=== PATIENT | male | born 1965 | race Caucasian/White ===

== ENCOUNTER 2016-08-27 07:22 | Day surgery (SDC) | payer BC ==
--- NOTE | ~2016-08-27 | EGD ---
EGD REPORT [facility] [address] [address] NAME: ZAIRE DICKINSON : [birth year] STATUS : REG [facility]#: [id number] AGE: 51 ADM/REG DATE : 08/27/16 MR#: [id number] REPORT SERV DATE: 08/27/16 DICTATED BY: SHAN LENZ DATE: 08/27/16 REPORT STATUS : Draft [facility]ANSCRIBED BY: [facility] DATE: 08/27/16 [facility] Patient Name: Zaire Dickinson Date of : 1965 Attending MD: SHAN LENZ MD Procedure Date No Time: 08/27/2016 Procedure: Colonoscopy Indications: High risk colon cancer surveillance: Personal history of colonic polyps last exam 3 years ago done elsewhere. Patient Profile: Informed consent was obtained from the patient by me prior to the procedure. Risks, benefits, and alternatives were discussed including the risk of bleeding, perforation, infection, reaction to medicine, missed lesion, and cardiopulmonary complications. Referring MD: Viet Ortiz Medicines: Monitored Anesthesia Care Complications: No immediate complications. Procedure: Pre-Anesthesia Assessment: - ASA Grade Assessment: II - A patient with mild systemic disease. After I obtained informed consent, the scope was passed under direct vision. Throughout the procedure, the patient's blood pressure, pulse, and oxygen saturations were monitored continuously. The CF [id number] was introduced through the anus and advanced to the cecum, identified by appendiceal orifice and ileocecal valve. The colonoscope was slowly withdrawn with careful examination all mucosal surfaces including specific attention around flexures and tip deflection behind folds; retroflexion performed in rectum. The colonoscopy was performed without difficulty. The patient tolerated the procedure well. The quality of the bowel preparation was adequate. The ileocecal valve, appendiceal orifice and rectum were photographed. Findings: A flat polyp was found in the ascending colon. The polyp was 5 mm in size. The polyp was removed with a cold biopsy forceps. Resection and retrieval were complete. A flat polyp was found in the transverse colon. The polyp was 10 mm in size. The polyp was removed with a cold snare. Resection and retrieval were complete. A sessile polyp was found in the transverse colon. The polyp was 5 mm in size. The polyp was removed with a cold biopsy forceps. Resection and retrieval were complete. EGD REPORT [place] [address] [place]. [address] NAME: ZAIRE DICKINSON : [birth year] STATUS : REG [facility]#: [id number] AGE: 51 ADM/REG DATE : 08/27/16 MR#: [id number] REPORT SERV DATE: 08/27/16 DICTATED BY: SHAN LENZ DATE: 08/27/16 REPORT STATUS : Draft TRANSCRIBED BY: [employer] DATE: 08/27/16 Two flat polyps were found in the sigmoid colon. The polyps were 3 to 5 mm in size. These polyps were removed with a cold biopsy forceps. Resection and retrieval were complete. Impression: - One 5 mm polyp in the ascending colon. Resected and retrieved. - One 10 mm polyp in the transverse colon. Resected and retrieved. - One 5 mm polyp in the transverse colon. Resected and retrieved. - Two 3 to 5 mm polyps in the sigmoid colon. Resected and retrieved. Recommendation: - Patient has a contact number available for emergencies. The signs and symptoms of potential delayed complications were discussed with the patient. Return to normal activities tomorrow. Written discharge instructions were provided to the patient. - Regular diet. - Continue present medications. - Await pathology results. - Repeat colonoscopy for surveillance based on pathology results. Procedure Code(s): --- Professional --- 28891, Colonoscopy, flexible, proximal to splenic flexure; with removal of tumor(s), polyp(s), or other lesion(s) by snare technique 90732, 59, Colonoscopy, flexible, proximal to splenic flexure; with biopsy, single or multiple Diagnosis Code(s): --- Professional --- D12.5, Benign neoplasm of sigmoid colon D12.3, Benign neoplasm of transverse colon D12.2, Benign neoplasm of ascending colon Z86.010, Personal history of colonic polyps CPT copyright 2013 [employer]. All rights reserved. The codes documented in this report are preliminary and upon farmworker machine review may be revised to meet current compliance requirements. SHAN LENZ MD 08/27/2016 10:42 AM This report has been signed electronically. EGD REPORT [place] [address] [place]. [address] NAME: ZAIRE DICKINSON : [birth year] STATUS : REG [facility] PAT#: [id number] AGE: 51 ADM/REG DATE : 08/27/16 MR#: [id number] REPORT SERV DATE: 08/27/16 DICTATED BY: SHAN LENZ. DATE: 08/27/16 REPORT STATUS : Draft TRANSCRIBED BY: [employer] DATE: 08/27/16 Number of Addenda: 0 Note Initiated On: 08/27/2016 9:39 AM Scope Withdrawal Time 0 hours 12 minutes 2 seconds
[~2016-08-27 07:22] MED LIST: ASAB PO; CLARIT10 PO; DIOV160 PO; MULTI-VIT HP PO
== END 2016-08-27 23:59 | disposition home or self-care (01) ==
LOC: DMU 07:22
PROVIDERS: Internal Medicine Gastroenterology
PROC: 0DBL8ZZ Excision of Transverse Colon, Via Natural or Artificial Opening Endoscopic (ICD-10-PCS; 2016-08-27)
PROC: 0DBK8ZZ Excision of Ascending Colon, Via Natural or Artificial Opening Endoscopic (ICD-10-PCS; principal; 2016-08-27 08:30)
PROC: 0DBN8ZZ Excision of Sigmoid Colon, Via Natural or Artificial Opening Endoscopic (ICD-10-PCS; 2016-08-27 08:30)
DX: Z12.11 Encounter for screening for malignant neoplasm of colon (principal); K63.5 Polyp of colon; I10 Essential (primary) hypertension; Z86.010 Personal history of colon polyps; Z79.82 Long term (current) use of aspirin; Z79.899 Other long term (current) drug therapy; Z88.2 Allergy status to sulfonamides
CPT/HCPCS: 88305